=== PATIENT | male | born 1935 | race Caucasian/White ===

== ENCOUNTER 2021-07-06 16:25 | Inpatient (IN) | payer MEDICARE, OTHER ==
[2021-07-06 17:52] LABS: #Lymphocytes 0.5 thou/uL (1.20-3.40); #Monocytes 0.8 thou/uL (0.11-0.59); #Neutrophils 4.2 thou/uL (1.40-6.50); %Eosinophils 0.3 % (0.0-10.0); %Lymphocytes 9.7 % (21.0-51.0); %Monocytes 14.1 % (0.0-10.0); Hemoglobin 10.5 g/dL (14.0-18.0); Mean Corpuscular HGB CONC 32.5 g/dL (32.0-36.0); Mean Corpuscular Hemoglobin 33.6 pg (27.0-31.0); Mean Platelet Volume 6.8 fL (7.4-10.4); Platelet Count 147 thou/uL (130-400); RBC Distribution Width 12.1 % (11.5-14.5); Red Blood Cell (RBC) Count 3.13 mill/uL (4.70-6.10); White Blood Cell (WBC) Count 5.6 thou/uL (4.8-10.8)
[2021-07-06 18:16] LABS: ALT (SGPT) 21 U/L (8-55); AST (SGOT) 41 U/L (5-34); Albumin 3.8 g/dL (3.4-4.8); Alkaline Phosphatase 39 U/L (40-110); Anion Gap 14 mmol/L (10-20); BUN (Urea Nitrogen) 52 mg/dL (8.4-25.7); Bilirubin, Total 0.3 mg/dL (0.2-1.2); Calc. Creatinine Clearance 0 mL/min (70-130); Calcium 8.5 mg/dL (7.8-10.44); Carbon Dioxide 26 mmol/L (23-31); Chloride 101 mmol/L (98-107); Globulin 2.2 g/dL (2.4-3.5); Potassium 3.6 mmol/L (3.5-5.1); Sodium 137 mmol/L (136-145)
[2021-07-06 18:22] LABS: Glucose 35 mg/dL (83-110)
[2021-07-06] MEDS ORDERED: Dextrose 50% Abboject 50 ML SYRINGE ONE ×3 (18:27→20:58)
[2021-07-06 18:44] LABS: CKMB 7.3 ng/mL (0-6.6)
[2021-07-06] MEDS ORDERED: Aspirin 325 MG TAB ONE (19:04)
[2021-07-06] MEDS ORDERED: Enoxaparin Sodium 100 MG/ML SYRINGE ONE (19:04)
[2021-07-06 19:32] LABS: Bilirubin Negative (Negative); Blood, Urine 1+ (Negative); Clarity Clear (Clear); Glucose, Urine (Dipstick) Normal (Negative); Ketone, Urine Negative (Negative); Leukocyte Negative Leu/uL (Negative); Nitrite Negative (Negative); Protein, Urine (Dipstick) 20 mg/dL (Neg-Trace); RBC/HPF 0-3 HPF (0-3); Specific Gravity, Urine 1.016 (1.002-1.036); Squamous Epithelial 0-3 HPF (0-3); Urobilinogen Normal mg/dL (Less than 2); WBC/HPF 0-3 HPF (0-3)
[2021-07-06 19:53] LABS: Bacteria/HPF None Seen HPF (None Seen)
[2021-07-06] MEDS ORDERED: Ondansetron PF 4 MG/2 ML Vial IVP PRN (20:07)
[2021-07-06] MEDS ORDERED: Nitroglycerin 0.4 MG TAB (25 Tab Bottle) SL PRN (20:07)
[2021-07-06] MEDS ORDERED: Ondansetron ODT 4 MG TAB PO PRN (20:07)
[2021-07-06] MEDS ORDERED: Acetaminophen 650 MG Suppository PR PRN (20:07)
[2021-07-06] MEDS ORDERED: Acetaminophen 325 MG TAB PO PRN (20:07)
[2021-07-06] MEDS ORDERED: Sodium Chloride 0.9% 1,000 ML IV SCH (20:45)
[2021-07-06 20:49] LABS: Troponin I 0.088 ng/mL (< 0.028)
[2021-07-06] MEDS: Dextrose 5 % And 0.9 % NaCl 1,000 ML IV SCH (23:05)
[2021-07-07 00:48] LABS: Magnesium 1.8 mg/dL (1.6-2.6); Phosphorus 4.4 mg/dL (2.3-4.7)
[2021-07-07] MEDS ORDERED: Enoxaparin Sodium 30 MG/0.3 ML SYRINGE SC SCH (09:00)
[2021-07-07] MEDS ORDERED: Aspirin Chewable 81 MG TAB PO SCH (09:00)
[2021-07-07 10:13] LABS: Hemoglobin 9.9 g/dL (14.0-18.0); Mean Corpuscular HGB CONC 31.4 g/dL (32.0-36.0); Mean Corpuscular Hemoglobin 33.2 pg (27.0-31.0); Mean Platelet Volume 8.1 fL (7.4-10.4); Platelet Count 136 thou/uL (130-400); RBC Distribution Width 12.3 % (11.5-14.5); Red Blood Cell (RBC) Count 2.97 mill/uL (4.70-6.10); White Blood Cell (WBC) Count 4.5 thou/uL (4.8-10.8)
[2021-07-07 10:31] LABS: Band 12 % (5-11); Lymphocytes 23 % (21-51); MDiff Complete? YES; Metamyelocyte 1 % (0-0); Monocytes 5 % (0-10); Neutrophil 59 % (42-75); Platelet Morphology Comment Appears Adequate; Polychromasia SLIGHT = 2-3 cells (100X) (0-2/hpf)
[2021-07-07] MEDS ORDERED: Dextrose 5% in Water 1,000 ML IV PRN (10:48)
[2021-07-07] MEDS ORDERED: Dextrose 50% Abboject 50 ML SYRINGE SLOW IVP PRN (10:48)
[2021-07-07 10:49] LABS: Anion Gap 11 mmol/L (10-20); BUN (Urea Nitrogen) 44 mg/dL (8.4-25.7); Calc. Creatinine Clearance 0 mL/min (70-130); Calcium 7.8 mg/dL (7.8-10.44); Carbon Dioxide 23 mmol/L (23-31); Chloride 108 mmol/L (98-107); Potassium 3.8 mmol/L (3.5-5.1); Sodium 138 mmol/L (136-145)
[2021-07-07 11:00] LABS: Glucose 58 mg/dL (83-110)
[2021-07-07 11:26] LABS: Hemoglobin A1c 6.4 % (4.0-6.0)
[2021-07-07 11:28] LABS: Troponin I 0.054 ng/mL (< 0.028)
[2021-07-07 11:29] LABS: SARS-CoV-2 PCR by NAA DETECTED (NotDetected)
[2021-07-07 15:18] VITALS: BMI 28.6
[2021-07-07] MEDS: Enoxaparin Sodium 30 MG/0.3 ML SYRINGE SC SCH (15:26)
[2021-07-07] MEDS: Dextrose 5 % And 0.9 % NaCl 1,000 ML IV SCH ×2 (16:43→16:44)
[2021-07-07] MEDS: Aggrenox 200-25mg CAP PO SCH (20:25)
[2021-07-08] MEDS: Dextrose 5 % And 0.9 % NaCl 1,000 ML IV SCH (03:12)
[2021-07-08 05:45] LABS: #Lymphocytes 1.2 thou/uL (1.20-3.40); #Monocytes 0.5 thou/uL (0.11-0.59); #Neutrophils 1.7 thou/uL (1.40-6.50); %Basophils 0.1 % (0.0-1.0); %Eosinophils 0.6 % (0.0-10.0); %Lymphocytes 36.3 % (21.0-51.0); %Monocytes 13.6 % (0.0-10.0); %Neutrophils 49.4 % (42.0-75.0); Mean Corpuscular HGB CONC 33.7 g/dL (32.0-36.0); Mean Corpuscular Hemoglobin 34.8 pg (27.0-31.0); Mean Platelet Volume 7.2 fL (7.4-10.4); Platelet Count 136 thou/uL (130-400); Red Blood Cell (RBC) Count 2.89 mill/uL (4.70-6.10); White Blood Cell (WBC) Count 3.4 thou/uL (4.8-10.8)
[2021-07-08 05:55] LABS: Anion Gap 11 mmol/L (10-20); BUN (Urea Nitrogen) 38 mg/dL (8.4-25.7); Calc. Creatinine Clearance 38 mL/min (70-130); Calcium 7.6 mg/dL (7.8-10.44); Carbon Dioxide 25 mmol/L (23-31); Chloride 108 mmol/L (98-107); Glucose 115 mg/dL (83-110); Potassium 3.5 mmol/L (3.5-5.1); Sodium 140 mmol/L (136-145)
[2021-07-08] MEDS ORDERED: Cholecalciferol 1,000 UNITS (25 MCG) TAB PO SCH (09:00)
[2021-07-08] MEDS: Atenolol 25 MG TAB PO SCH (09:57)
[2021-07-08] MEDS: Zinc Sulfate 220 MG CAP PO SCH (09:58)
[2021-07-08] MEDS: Cholecalciferol (Vitamin D3) 400 UNITS TAB PO SCH (09:58)
[2021-07-08] MEDS: Ascorbic Acid 500 mg Chewable Tablet PO SCH (09:58)
[2021-07-08] MEDS: Multivit, Therapeutic 1 TAB PO SCH (09:58)
[2021-07-08] MEDS: Aggrenox 200-25mg CAP PO SCH ×2 (09:58→20:14)
[2021-07-08] MEDS: Enoxaparin Sodium 30 MG/0.3 ML SYRINGE SC SCH (09:59)
[2021-07-08] MEDS: Lactated Ringer's 1,000 ML IV SCH (09:59)
[2021-07-09 05:42] LABS: Anion Gap 11 mmol/L (10-20); BUN (Urea Nitrogen) 32 mg/dL (8.4-25.7); Calc. Creatinine Clearance 40 mL/min (70-130); Calcium 7.9 mg/dL (7.8-10.44); Carbon Dioxide 27 mmol/L (23-31); Chloride 107 mmol/L (98-107); Glucose 117 mg/dL (83-110); Potassium 3.8 mmol/L (3.5-5.1); Sodium 141 mmol/L (136-145)
[2021-07-09] MEDS: Lactated Ringer's 1,000 ML IV SCH (06:07)
[2021-07-09 07:06] LABS: Band 4 % (5-11); Hemoglobin 9.7 g/dL (14.0-18.0); Lymphocytes 42 % (21-51); MDiff Complete? YES; Mean Corpuscular Hemoglobin 34.2 pg (27.0-31.0); Mean Platelet Volume 6.8 fL (7.4-10.4); Monocytes 12 % (0-10); Neutrophil 42 % (42-75); Platelet Count 126 thou/uL (130-400); Red Blood Cell (RBC) Count 2.83 mill/uL (4.70-6.10); White Blood Cell (WBC) Count 3.1 thou/uL (4.8-10.8)
[2021-07-09] MEDS: Aggrenox 200-25mg CAP PO SCH ×2 (08:53→20:21)
[2021-07-09] MEDS: Enoxaparin Sodium 30 MG/0.3 ML SYRINGE SC SCH (08:54)
[2021-07-09] MEDS: Multivit, Therapeutic 1 TAB PO SCH (08:54)
[2021-07-09] MEDS: Cholecalciferol (Vitamin D3) 400 UNITS TAB PO SCH (08:54)
[2021-07-09] MEDS: Ascorbic Acid 500 mg Chewable Tablet PO SCH (08:54)
[2021-07-09] MEDS: Azithromycin 250 MG TAB PO SCH (08:55)
[2021-07-09] MEDS: Atenolol 25 MG TAB PO SCH (08:55)
[2021-07-09] MEDS: cefTRIAXone\\ROCEPHIN 2 GM in Sodium Chloride 0.9% 100 ML IVPB SCH (08:56)
[2021-07-09] MEDS: Zinc Sulfate 220 MG CAP PO SCH (08:56)
[2021-07-09] MEDS: Enoxaparin Sodium 40 MG/0.4 ML SYRINGE SC SCH (09:35)
[2021-07-09] MEDS: HumaLOG 300 UNITS/3 ML VIAL SC PRN (20:53)
[2021-07-10] MEDS: Lactated Ringer's 1,000 ML IV SCH (01:54)
[2021-07-10] MEDS: Zinc Sulfate 220 MG CAP PO SCH (08:07)
[2021-07-10] MEDS: Atenolol 25 MG TAB PO SCH (08:07)
[2021-07-10] MEDS: Ascorbic Acid 500 mg Chewable Tablet PO SCH (08:07)
[2021-07-10] MEDS: Aggrenox 200-25mg CAP PO SCH ×2 (08:07→20:52)
[2021-07-10] MEDS: Multivit, Therapeutic 1 TAB PO SCH (08:07)
[2021-07-10] MEDS: Cholecalciferol (Vitamin D3) 400 UNITS TAB PO SCH (08:07)
[2021-07-10] MEDS: Azithromycin 250 MG TAB PO SCH (08:07)
[2021-07-10] MEDS: cefTRIAXone\\ROCEPHIN 2 GM in Sodium Chloride 0.9% 100 ML IVPB SCH (08:08)
[2021-07-10] MEDS: Enoxaparin Sodium 40 MG/0.4 ML SYRINGE SC SCH (08:08)
[2021-07-10 09:25] LABS: #Eosinphils 0.1 thou/uL (0.0-0.7); #Monocytes 0.4 thou/uL (0.11-0.59); #Neutrophils 1.8 thou/uL (1.40-6.50); %Basophils 0.2 % (0.0-1.0); %Eosinophils 2.6 % (0.0-10.0); %Lymphocytes 30.8 % (21.0-51.0); %Monocytes 10.8 % (0.0-10.0); %Neutrophils 55.6 % (42.0-75.0); Hemoglobin 9.9 g/dL (14.0-18.0); Mean Corpuscular HGB CONC 33.2 g/dL (32.0-36.0); Mean Platelet Volume 7.1 fL (7.4-10.4); Platelet Count 135 thou/uL (130-400); RBC Distribution Width 11.9 % (11.5-14.5); Red Blood Cell (RBC) Count 2.92 mill/uL (4.70-6.10); White Blood Cell (WBC) Count 3.2 thou/uL (4.8-10.8)
[2021-07-10 09:48] LABS: Anion Gap 11 mmol/L (10-20); BUN (Urea Nitrogen) 26 mg/dL (8.4-25.7); Calc. Creatinine Clearance 42 mL/min (70-130); Calcium 8.3 mg/dL (7.8-10.44); Carbon Dioxide 28 mmol/L (23-31); Chloride 105 mmol/L (98-107); Glucose 141 mg/dL (83-110); Potassium 3.8 mmol/L (3.5-5.1); Sodium 140 mmol/L (136-145)
[2021-07-10] MEDS: HumaLOG 300 UNITS/3 ML VIAL SC PRN ×2 (11:02→20:52)
[2021-07-10] MEDS ORDERED: Lactated Ringer's 500 ML IV SCH (16:45)
[2021-07-11 05:43] LABS: #Basophils 0.1 thou/uL (0.0-0.2); #Eosinphils 0.1 thou/uL (0.0-0.7); #Monocytes 0.4 thou/uL (0.11-0.59); #Neutrophils 2.3 thou/uL (1.40-6.50); %Basophils 2.1 % (0.0-1.0); %Eosinophils 3.1 % (0.0-10.0); %Lymphocytes 25.1 % (21.0-51.0); %Monocytes 10.8 % (0.0-10.0); %Neutrophils 58.8 % (42.0-75.0); Hemoglobin 9.8 g/dL (14.0-18.0); Mean Corpuscular HGB CONC 34.7 g/dL (32.0-36.0); Mean Corpuscular Hemoglobin 35.8 pg (27.0-31.0); Mean Platelet Volume 7.1 fL (7.4-10.4); Platelet Count 130 thou/uL (130-400); RBC Distribution Width 11.9 % (11.5-14.5); Red Blood Cell (RBC) Count 2.72 mill/uL (4.70-6.10); White Blood Cell (WBC) Count 3.9 thou/uL (4.8-10.8)
[2021-07-11 06:03] LABS: Anion Gap 12 mmol/L (10-20); BUN (Urea Nitrogen) 27 mg/dL (8.4-25.7); Calc. Creatinine Clearance 43 mL/min (70-130); Calcium 8.2 mg/dL (7.8-10.44); Carbon Dioxide 27 mmol/L (23-31); Chloride 104 mmol/L (98-107); Glucose 121 mg/dL (83-110); Potassium 3.8 mmol/L (3.5-5.1); Sodium 139 mmol/L (136-145)
[2021-07-11] MEDS: cefTRIAXone\\ROCEPHIN 2 GM in Sodium Chloride 0.9% 100 ML IVPB SCH (08:28)
[2021-07-11] MEDS: Ascorbic Acid 500 mg Chewable Tablet PO SCH (08:29)
[2021-07-11] MEDS: Zinc Sulfate 220 MG CAP PO SCH (08:29)
[2021-07-11] MEDS: Aggrenox 200-25mg CAP PO SCH ×2 (08:29→20:55)
[2021-07-11] MEDS: Cholecalciferol (Vitamin D3) 400 UNITS TAB PO SCH (08:29)
[2021-07-11] MEDS: Azithromycin 250 MG TAB PO SCH (08:29)
[2021-07-11] MEDS: Multivit, Therapeutic 1 TAB PO SCH (08:30)
[2021-07-11] MEDS: Enoxaparin Sodium 40 MG/0.4 ML SYRINGE SC SCH (08:30)
[2021-07-11] MEDS: Atenolol 25 MG TAB PO SCH (09:43)
[2021-07-11] MEDS: HumaLOG 300 UNITS/3 ML VIAL SC PRN (11:37)
[2021-07-12 05:09] LABS: #Eosinphils 0.1 thou/uL (0.0-0.7); #Lymphocytes 1.3 thou/uL (1.20-3.40); #Monocytes 0.5 thou/uL (0.11-0.59); #Neutrophils 2.2 thou/uL (1.40-6.50); %Basophils 0.5 % (0.0-1.0); %Eosinophils 2.1 % (0.0-10.0); %Monocytes 12.1 % (0.0-10.0); %Neutrophils 54.3 % (42.0-75.0); Hemoglobin 9.9 g/dL (14.0-18.0); Mean Corpuscular HGB CONC 33.3 g/dL (32.0-36.0); Platelet Count 149 thou/uL (130-400); RBC Distribution Width 11.9 % (11.5-14.5); Red Blood Cell (RBC) Count 2.92 mill/uL (4.70-6.10)
[2021-07-12 05:28] LABS: Anion Gap 13 mmol/L (10-20); BUN (Urea Nitrogen) 25 mg/dL (8.4-25.7); Calc. Creatinine Clearance 46 mL/min (70-130); Calcium 8.2 mg/dL (7.8-10.44); Carbon Dioxide 27 mmol/L (23-31); Chloride 103 mmol/L (98-107); Glucose 123 mg/dL (83-110); Potassium 3.7 mmol/L (3.5-5.1); Sodium 139 mmol/L (136-145)
[2021-07-12] MEDS: Aggrenox 200-25mg CAP PO SCH ×2 (09:05→20:32)
[2021-07-12] MEDS: cefTRIAXone\\ROCEPHIN 2 GM in Sodium Chloride 0.9% 100 ML IVPB SCH (09:05)
[2021-07-12] MEDS: Enoxaparin Sodium 40 MG/0.4 ML SYRINGE SC SCH (09:05)
[2021-07-12] MEDS: Multivit, Therapeutic 1 TAB PO SCH (09:06)
[2021-07-12] MEDS: Atenolol 25 MG TAB PO SCH (09:06)
[2021-07-12] MEDS: Zinc Sulfate 220 MG CAP PO SCH (09:06)
[2021-07-12] MEDS: Ascorbic Acid 500 mg Chewable Tablet PO SCH (09:06)
[2021-07-12] MEDS: Cholecalciferol (Vitamin D3) 400 UNITS TAB PO SCH (09:06)
[2021-07-12] MEDS: HumaLOG 300 UNITS/3 ML VIAL SC PRN (11:54)
[2021-07-13 05:39] LABS: #Eosinphils 0.1 thou/uL (0.0-0.7); #Lymphocytes 0.9 thou/uL (1.20-3.40); #Monocytes 0.5 thou/uL (0.11-0.59); #Neutrophils 2.7 thou/uL (1.40-6.50); %Basophils 0.2 % (0.0-1.0); %Eosinophils 2.1 % (0.0-10.0); %Lymphocytes 21.4 % (21.0-51.0); %Monocytes 12.3 % (0.0-10.0); Hemoglobin 9.9 g/dL (14.0-18.0); Mean Corpuscular HGB CONC 33.5 g/dL (32.0-36.0); Mean Corpuscular Hemoglobin 34.4 pg (27.0-31.0); Mean Platelet Volume 6.9 fL (7.4-10.4); Platelet Count 165 thou/uL (130-400); RBC Distribution Width 11.9 % (11.5-14.5); Red Blood Cell (RBC) Count 2.88 mill/uL (4.70-6.10); White Blood Cell (WBC) Count 4.2 thou/uL (4.8-10.8)
[2021-07-13 06:08] LABS: Anion Gap 12 mmol/L (10-20); BUN (Urea Nitrogen) 24 mg/dL (8.4-25.7); Calc. Creatinine Clearance 47 mL/min (70-130); Calcium 8.2 mg/dL (7.8-10.44); Carbon Dioxide 29 mmol/L (23-31); Chloride 103 mmol/L (98-107); Glucose 138 mg/dL (83-110); Potassium 3.5 mmol/L (3.5-5.1); Sodium 140 mmol/L (136-145)
[2021-07-13] MEDS: cefTRIAXone\\ROCEPHIN 2 GM in Sodium Chloride 0.9% 100 ML IVPB SCH (08:55)
[2021-07-13] MEDS: Zinc Sulfate 220 MG CAP PO SCH (08:56)
[2021-07-13] MEDS: Atenolol 25 MG TAB PO SCH (08:56)
[2021-07-13] MEDS: Cholecalciferol (Vitamin D3) 400 UNITS TAB PO SCH (08:56)
[2021-07-13] MEDS: Enoxaparin Sodium 40 MG/0.4 ML SYRINGE SC SCH (08:56)
[2021-07-13] MEDS: Ascorbic Acid 500 mg Chewable Tablet PO SCH (08:56)
[2021-07-13] MEDS: Multivit, Therapeutic 1 TAB PO SCH (08:56)
[2021-07-13] MEDS: Aggrenox 200-25mg CAP PO SCH ×2 (08:56→21:02)
[2021-07-13] MEDS: HumaLOG 300 UNITS/3 ML VIAL SC PRN (11:57)
[2021-07-14 04:48] LABS: #Eosinphils 0.1 thou/uL (0.0-0.7); #Lymphocytes 0.8 thou/uL (1.20-3.40); #Monocytes 0.5 thou/uL (0.11-0.59); #Neutrophils 2.9 thou/uL (1.40-6.50); %Basophils 0.1 % (0.0-1.0); %Eosinophils 2.4 % (0.0-10.0); %Lymphocytes 18.5 % (21.0-51.0); %Monocytes 12.3 % (0.0-10.0); %Neutrophils 66.7 % (42.0-75.0); Hemoglobin 9.6 g/dL (14.0-18.0); Mean Corpuscular HGB CONC 33.4 g/dL (32.0-36.0); Mean Corpuscular Hemoglobin 34.3 pg (27.0-31.0); Mean Platelet Volume 7.1 fL (7.4-10.4); Platelet Count 182 thou/uL (130-400); RBC Distribution Width 12.1 % (11.5-14.5); Red Blood Cell (RBC) Count 2.81 mill/uL (4.70-6.10); White Blood Cell (WBC) Count 4.3 thou/uL (4.8-10.8)
[2021-07-14 05:09] LABS: Anion Gap 13 mmol/L (10-20); BUN (Urea Nitrogen) 24 mg/dL (8.4-25.7); Calc. Creatinine Clearance 48 mL/min (70-130); Calcium 8.3 mg/dL (7.8-10.44); Carbon Dioxide 27 mmol/L (23-31); Chloride 104 mmol/L (98-107); Glucose 134 mg/dL (83-110); Potassium 3.5 mmol/L (3.5-5.1); Sodium 140 mmol/L (136-145)
[2021-07-14] MEDS: cefTRIAXone\\ROCEPHIN 2 GM in Sodium Chloride 0.9% 100 ML IVPB SCH (07:43)
[2021-07-14] MEDS: Atenolol 25 MG TAB PO SCH (07:44)
[2021-07-14] MEDS: Aggrenox 200-25mg CAP PO SCH ×2 (07:44→20:25)
[2021-07-14] MEDS: Cholecalciferol (Vitamin D3) 400 UNITS TAB PO SCH (07:45)
[2021-07-14] MEDS: Zinc Sulfate 220 MG CAP PO SCH (07:45)
[2021-07-14] MEDS: Enoxaparin Sodium 40 MG/0.4 ML SYRINGE SC SCH (07:45)
[2021-07-14] MEDS: Ascorbic Acid 500 mg Chewable Tablet PO SCH (07:45)
[2021-07-14] MEDS: Multivit, Therapeutic 1 TAB PO SCH (07:45)
[2021-07-14] MEDS ORDERED: Cefuroxime Axetil 250 MG TAB PO SCH (09:00)
[2021-07-14] MEDS: Cefdinir 300 MG CAP PO SCH ×2 (09:45→20:25)
[2021-07-14] MEDS: HumaLOG 300 UNITS/3 ML VIAL SC PRN (12:19)
[2021-07-15 04:51] LABS: #Eosinphils 0.1 thou/uL (0.0-0.7); #Lymphocytes 1.1 thou/uL (1.20-3.40); #Monocytes 0.5 thou/uL (0.11-0.59); %Basophils 0.3 % (0.0-1.0); %Eosinophils 2.9 % (0.0-10.0); %Lymphocytes 29.3 % (21.0-51.0); %Monocytes 13.9 % (0.0-10.0); %Neutrophils 53.5 % (42.0-75.0); Hemoglobin 9.6 g/dL (14.0-18.0); Mean Corpuscular Hemoglobin 33.9 pg (27.0-31.0); Platelet Count 201 thou/uL (130-400); RBC Distribution Width 11.9 % (11.5-14.5); Red Blood Cell (RBC) Count 2.82 mill/uL (4.70-6.10); White Blood Cell (WBC) Count 3.7 thou/uL (4.8-10.8)
[2021-07-15 05:17] LABS: Anion Gap 14 mmol/L (10-20); BUN (Urea Nitrogen) 26 mg/dL (8.4-25.7); Calc. Creatinine Clearance 45 mL/min (70-130); Calcium 8.1 mg/dL (7.8-10.44); Carbon Dioxide 26 mmol/L (23-31); Chloride 103 mmol/L (98-107); Glucose 130 mg/dL (83-110); Magnesium 1.5 mg/dL (1.6-2.6); Potassium 3.4 mmol/L (3.5-5.1); Sodium 140 mmol/L (136-145)
[2021-07-15] MEDS: Zinc Sulfate 220 MG CAP PO SCH (09:11)
[2021-07-15] MEDS: Enoxaparin Sodium 40 MG/0.4 ML SYRINGE SC SCH (09:11)
[2021-07-15] MEDS: Ascorbic Acid 500 mg Chewable Tablet PO SCH (09:11)
[2021-07-15] MEDS: Pioglitazone HCl 15 MG TAB PO SCH (09:11)
[2021-07-15] MEDS: Multivit, Therapeutic 1 TAB PO SCH (09:12)
[2021-07-15] MEDS: Aggrenox 200-25mg CAP PO SCH ×2 (09:12→20:49)
[2021-07-15] MEDS: Cefdinir 300 MG CAP PO SCH ×2 (09:12→20:49)
[2021-07-15] MEDS: Cholecalciferol (Vitamin D3) 400 UNITS TAB PO SCH (09:12)
[2021-07-15] MEDS: Atenolol 25 MG TAB PO SCH (09:13)
[2021-07-15] MEDS: HumaLOG 300 UNITS/3 ML VIAL SC PRN (17:19)
[2021-07-16 06:21] LABS: #Eosinphils 0.1 thou/uL (0.0-0.7); #Lymphocytes 1.2 thou/uL (1.20-3.40); #Monocytes 0.5 thou/uL (0.11-0.59); %Basophils 0.9 % (0.0-1.0); %Eosinophils 3.3 % (0.0-10.0); %Lymphocytes 30.8 % (21.0-51.0); %Monocytes 13.7 % (0.0-10.0); %Neutrophils 51.3 % (42.0-75.0); Hemoglobin 10.1 g/dL (14.0-18.0); Mean Corpuscular HGB CONC 33.6 g/dL (32.0-36.0); Mean Corpuscular Hemoglobin 34.6 pg (27.0-31.0); Mean Platelet Volume 6.9 fL (7.4-10.4); Platelet Count 216 thou/uL (130-400); RBC Distribution Width 11.8 % (11.5-14.5); Red Blood Cell (RBC) Count 2.93 mill/uL (4.70-6.10); White Blood Cell (WBC) Count 3.9 thou/uL (4.8-10.8)
[2021-07-16 06:26] LABS: Anion Gap 13 mmol/L (10-20); BUN (Urea Nitrogen) 28 mg/dL (8.4-25.7); Calc. Creatinine Clearance 43 mL/min (70-130); Calcium 8.4 mg/dL (7.8-10.44); Carbon Dioxide 28 mmol/L (23-31); Glucose 160 mg/dL (83-110); Potassium 3.7 mmol/L (3.5-5.1)
[2021-07-16 07:36] LABS: Chloride 103 mmol/L (98-107); Sodium 140 mmol/L (136-145)
[2021-07-16] MEDS: Cefdinir 300 MG CAP PO SCH (08:20)
[2021-07-16] MEDS: Ascorbic Acid 500 mg Chewable Tablet PO SCH (08:20)
[2021-07-16] MEDS: Multivit, Therapeutic 1 TAB PO SCH (08:20)
[2021-07-16] MEDS: Pioglitazone HCl 15 MG TAB PO SCH (08:20)
[2021-07-16] MEDS: Aggrenox 200-25mg CAP PO SCH (08:20)
[2021-07-16] MEDS: Enoxaparin Sodium 40 MG/0.4 ML SYRINGE SC SCH (08:20)
[2021-07-16] MEDS: Zinc Sulfate 220 MG CAP PO SCH (08:21)
[2021-07-16] MEDS: Cholecalciferol (Vitamin D3) 400 UNITS TAB PO SCH (08:21)
[2021-07-16] MEDS: Atenolol 25 MG TAB PO SCH (08:21)
[2021-07-16 10:40] LABS: Magnesium 1.6 mg/dL (1.6-2.6)
[2021-07-16] MEDS: HumaLOG 300 UNITS/3 ML VIAL SC PRN (11:41)
[2021-07-16 12:22] VITALS: BP 136/67; TEMP 98.1
== END 2021-07-16 13:44 | DRG 177 ==
LOC: ERS 16:54 → ERHOLD 19:35 → 2SW 07-07 14:26 → OBSVTOIN 07-08 07:24
PROVIDERS: ADMIT Student in an Organized Health Care Education/Training Program; ATTEND Internal Medicine
PROC: 8E0ZXY6 Isolation (ICD-10-PCS; principal; 2021-07-08)
DX: U07.1 COVID-19 (principal); I21.A1 Myocardial infarction type 2; J13 Pneumonia due to Streptococcus pneumoniae; N17.9 Acute kidney failure, unspecified; I12.9 Hypertensive chronic kidney disease with stage 1 through stage 4 chronic kidney disease, or unspecified chronic kidney disease; N18.30 Chronic kidney disease, stage 3 unspecified; E11.22 Type 2 diabetes mellitus with diabetic chronic kidney disease; E11.649 Type 2 diabetes mellitus with hypoglycemia without coma; E86.0 Dehydration; E78.5 Hyperlipidemia, unspecified; Z88.2 Allergy status to sulfonamides; Z98.890 Other specified postprocedural states
CPT/HCPCS: 36415; 36416; 71045; 80048; 80053; 81003; 81015; 82553; 83036; 83605; 83735; 84100; 84484; 85025; 85652; 86140; 87040; 93005; 93306; 94760; 96372; 96374; 96376; G0378; J0696; J1650; J3490; J7042; J7120; U0003; U0005